=== PATIENT | female | born 1960 | race Caucasian/White ===

== ENCOUNTER 2020-05-20 09:41 | Emergency (ER) | payer MEDICARE ==
--- NOTE | 2020-05-20 10:37 | RADIOLOGY REPORT (SQ) ---
EXAM DESCRIPTION: CHEST SINGLE VIEW IMAGES COMPLETED DATE/TIME: 05/20/2020 10:27 am REASON FOR STUDY: shortness of breath COMPARISON: 12/06/2015. FINDINGS: One-view chest AP portable upright. Stable appearance. Pronounced emphysema in the upper lobes. Areas of scarring in the left upper lobe and scattered thro ughout the lower lobes. No suggestion of overt pneumothorax or superimposed infiltrate or mass. TECHNICAL DOCUMENTATION: JOB ID: [id number] Reading location - IP/workstation name: [email or web address]
[2020-05-20] MEDS ORDERED: NORMAL SALINE 1000 ML 1,000 ML IV ONE (11:08)
[2020-05-20 12:15] LABS: ABSOLUTE LYMPHOCYTES (AUTO) 0.7 10^3/uL (0.5-4.7); ABSOLUTE MONOCYTES (AUTO) 0.3 10^3/uL (0.1-1.4); ABSOLUTE NEUT (AUTO) 1.7 10^3/uL (1.7-8.2); BASOPHILS % (AUTO) 0.4 % (0-2); EOSINOPHILS % (AUTO) 0.1 % (0-6); HEMATOCRIT 39.2 % (36.0-47.0); HEMOGLOBIN 13.6 g/dL (12.0-15.5); LYMPHOCYTES % (AUTO) 26.4 % (13-45); MEAN CORPUSCULAR HEMOGLOBIN 30.3 pg (27.0-33.4); MEAN CORPUSCULAR HGB CONC 34.6 g/dL (32.0-36.0); MEAN CORPUSCULAR VOLUME 88 fl (80-97); MONOCYTES % (AUTO) 10.3 % (3-13); PLATELET COUNT 123 10^3/uL (150-450); RED BLOOD COUNT 4.48 10^6/uL (3.72-5.28); RED CELL DISTRIBUTION WIDTH 12.7 % (11.5-14.0); SEGMENTED NEUTROPHILS % (AUTO) 62.8 % (42-78); TOTAL CELLS COUNTED % (AUTO) 100 %; WHITE BLOOD COUNT 2.8 10^3/uL (4.0-10.5)
[2020-05-20 12:34] LABS: ALBUMIN 3.9 g/dL (3.5-5.0); ALKALINE PHOSPHATASE 60 U/L (38-126); ANION GAP 6 (5-19); ASPARTATE AMINO TRANSFERASE 43 U/L (14-36); BILIRUBIN,DIRECT 0.2 mg/dL (0.0-0.4); BILIRUBIN,TOTAL 0.5 mg/dL (0.2-1.3); BLOOD UREA NITROGEN 10 mg/dL (7-20); CALCIUM 8.6 mg/dL (8.4-10.2); CARBON DIOXIDE 30 mmol/L (22-30); CHLORIDE 100 mmol/L (98-107); GLUCOSE 92 mg/dL (75-110); POTASSIUM 3.7 mmol/L (3.6-5.0); TOTAL PROTEIN 6.3 g/dL (6.3-8.2)
--- NOTE | 2020-05-20 12:45 | ER Document Report ---
Entered by ESTRELLITA KIRKLAND SCRIBE 05/20/20 1057 Acting as scribe for:YOSSI CALDERON MD ED General - General Chief Complaint: Shortness Of Breath Stated Complaint: SHORT OF BREATH,COUGH,FEVER Mode of Arrival: Ambulatory Information source: Patient Notes: This 59 year old female patient with a history of COPD on 4L home O2 and bilateral lower lobe lung volume reduction x8 years ago presents to the ED today with complaints of "feeling bad" for the past x1 week. She reports intermittent fevers, productive cough with white sputum, wheezing, headache, loss of taste, headache, congestion, and nausea without emesis. She also mentions "waking up this morning feeling like my chest was on fire." She notes increased use of her nebulizer this past week and states that she did an albuterol treatment prior to arrival. Denies sore throat, known COVID exposure, or recent travel. TRAVEL OUTSIDE OF THE [place] IN LAST 30 DAYS: No - Related Data Allergies/Adverse Reactions: No Known Allergies Allergy (Verified 05/20/20 10:27) Past Medical History - General Information source: Patient - Social History Smoking Status: Former Smoker - quit 25 years ago Cigarette use (# per day): No Chew tobacco use (# tins/day): No Smoking Education Provided: No Frequency of alcohol use: None Drug Abuse: None Lives with: Spouse/Significant other Family History: Reviewed & Not Pertinent, CAD, Other - COPD Pulmonary Medical History: Reports: Hx COPD, Hx Pneumonia Past Surgical History: Reports: Hx Herniorrhaphy, Other - Bilateral lung volume reduction - Immunizations Hx Diphtheria, Pertussis, Tetanus Vaccination: Yes Review of Systems - Review of Systems Constitutional: See HPI, Chills, Fever EENT: See HPI, Nose congestion, Other - Loss of taste. denies: Throat pain Cardiovascular: No symptoms reported Respiratory: See HPI, Cough, Sputum, Wheezing Gastrointestinal: Nausea. denies: Vomiting Genitourinary: No symptoms reported Female Genitourinary: No symptoms reported Musculoskeletal: No symptoms reported Skin: No symptoms reported Hematologic/Lymphatic: No symptoms reported Neurological/Psychological: See HPI, Headaches -: Yes All other systems reviewed and negative Physical Exam - Vital signs Vitals: Temp Pulse Resp BP Pulse Ox 99.1 F 98 18 128/73 H 97 05/20/20 09:46 05/20/20 09:46 05/20/20 09:46 05/20/20 09:46 05/20/20 09:46 - General General appearance: Alert In distress: None - HEENT Head: Normocephalic, Atraumatic Eyes: Normal Extraocular movements intact: Yes Pupils: PERRL Pharynx: Erythema. No: Exudate Neck: Normal, Supple - Respiratory Respiratory status: No respiratory distress, Other - on 4L nasal cannula at baseline Chest status: Nontender Breath sounds: Wheezing - expiratory wheezing Chest palpation: Normal - Cardiovascular Rhythm: Regular Heart sounds: Normal auscultation Murmur: No - Abdominal Inspection: Normal Distension: No distension Bowel sounds: Normal Tenderness: Nontender - Abdomen soft Organomegaly: No organomegaly - Back Back: Normal, Nontender - Extremities General upper extremity: Normal inspection General lower extremity: Normal inspection. No: Edema - Neurological Neuro grossly intact: Yes Orientation: AAOx4 Lynch Coma Scale Eye Opening: Spontaneous Silvia Coma Scale Verbal: Oriented Lynch Coma Scale Motor: Obeys Commands Silvia Coma Scale Total: 15 - Psychological Associated symptoms: Normal affect, Normal mood - Skin Skin Temperature: Warm Skin Moisture: Dry Skin Color: Normal Course - Re-evaluation Re-evalutation: 05/20/20 15:36 Patient resting comfortably at this time patient has chronic nasal O2 at 4 L. Patient still receiving IV magnesium and has been given IV dexamethasone 6 mg. Patient is aware that she has COVID-19 positive and also rhinovirus our service present on the respiratory panel. Patient is not showing hypoxia or any extreme shortness of breath at this time. Patient has a low white blood cell count which is most likely due to her COVID-19. Patient is high risk and the fact that she has COPD. - Vital Signs Vital signs: Temp Pulse Resp BP Pulse Ox 99.1 F 98 18 128/73 H 97 05/20/20 09:46 05/20/20 09:46 05/20/20 09:46 05/20/20 09:46 05/20/20 09:46 - Laboratory Results Result Diagrams: 05/20/20 11:35 05/20/20 11:35 Laboratory Results Interpreted: 05/20/20 05/20/20 05/20/20 11:35 11:35 12:13 WBC 2.8 L Plt Count 123 L Sodium 135.7 L AST 43 H Entero/Rhino (PCR) DETECTED H SARS-CoV-2 (PCR) DETECTED H Labs- Entire Visit 05/20/20 05/20/20 05/20/20 11:35 11:35 11:35 WBC 2.8 L RBC 4.48 Hgb 13.6 Hct 39.2 MCV 88 MCH 30.3 MCHC 34.6 RDW 12.7 Plt Count 123 L Lymph % (Auto) 26.4 Whiteside % (Auto) 10.3 Eos % (Auto) 0.1 Baso % (Auto) 0.4 Absolute Neuts (auto) 1.7 Absolute Lymphs (auto) 0.7 Absolute Monos (auto) 0.3 Absolute Eos (auto) 0.0 Absolute Basos (auto) 0.0 Seg Neutrophils % 62.8 Sodium 135.7 L Potassium 3.7 Chloride 100 Carbon Dioxide 30 Anion Gap 6 BUN 10 Creatinine 0.80 Est GFR ( Amer) > 60 Est GFR (MDRD) Non-Af > 60 Glucose 92 Calcium 8.6 Total Bilirubin 0.5 Direct Bilirubin 0.2 Neonat Total Bilirubin Not Reportable Neonat Direct Bilirubin Not Reportable Neonat Indirect Bili Not Reportable AST 43 H ALT 26 Alkaline Phosphatase 60 Total Protein 6.3 Albumin 3.9 Vinicio Human Metapneumo PCR Cancelled Adenovirus (PCR) Cancelled B. pertussis DNA (PCR) Cancelled B.parapertussis DNA PCR Cancelled C. pneumoniae DNA (PCR) Cancelled Coronavirus OC43 (PCR) Cancelled Coronavirus HKU1 (PCR) Cancelled Coronavirus 229E (PCR) Cancelled Coronavirus NL63 (PCR) Cancelled Influenza A (H1) PCR Cancelled Influ A (H1N1/09) PCR Cancelled Influenza A (H3) PCR Cancelled Influenza Type A (PCR) Cancelled Influenza Type B (PCR) Cancelled M. pneumoniae (PCR) Cancelled Parainfluenza 1 (PCR) Cancelled Parainfluenza 2 (PCR) Cancelled Parainfluenza 3 (PCR) Cancelled Parainfluenza 4 (PCR) Cancelled RSV (PCR) Cancelled Entero/Rhino (PCR) Cancelled SARS-CoV-2 (PCR) Cancelled Group A Strep Rapid 05/20/20 05/20/20 11:35 12:13 WBC RBC Hgb Hct MCV MCH MCHC RDW Plt Count Lymph % (Auto) Whiteside % (Auto) Eos % (Auto) Baso % (Auto) Absolute Neuts (auto) Absolute Lymphs (auto) Absolute Monos (auto) Absolute Eos (auto) Absolute Basos (auto) Seg Neutrophils % Sodium Potassium Chloride Carbon Dioxide Anion Gap BUN Creatinine Est GFR ( Amer) Est GFR (MDRD) Non-Af Glucose Calcium Total Bilirubin Direct Bilirubin Neonat Total Bilirubin Neonat Direct Bilirubin Neonat Indirect Bili AST ALT Alkaline Phosphatase Total Protein Albumin Vinicio Human Metapneumo PCR NOT DETECTED Adenovirus (PCR) NOT DETECTED B. pertussis DNA (PCR) NOT DETECTED B.parapertussis DNA PCR NOT DETECTED C. pneumoniae DNA (PCR) NOT DETECTED Coronavirus OC43 (PCR) NOT DETECTED Coronavirus HKU1 (PCR) NOT DETECTED Coronavirus 229E (PCR) NOT DETECTED Coronavirus NL63 (PCR) NOT DETECTED Influenza A (H1) PCR NOT DETECTED Influ A (H1N1/09) PCR NOT DETECTED Influenza A (H3) PCR NOT DETECTED Influenza Type A (PCR) NOT DETECTED Influenza Type B (PCR) NOT DETECTED M. pneumoniae (PCR) NOT DETECTED Parainfluenza 1 (PCR) NOT DETECTED Parainfluenza 2 (PCR) NOT DETECTED Parainfluenza 3 (PCR) NOT DETECTED Parainfluenza 4 (PCR) NOT DETECTED RSV (PCR) NOT DETECTED Entero/Rhino (PCR) DETECTED H SARS-CoV-2 (PCR) DETECTED H Group A Strep Rapid NEGATIVE No acute labs other than patient has COVID-19 and also rhinovirus positive. Patient has chronic COPD and has wheezing. 05/20/20 15:38 Critical Laboratory Results Reviewed: No Critical Results - Radiology Results Radiology Results Interpreted: 05/20/20 15:40 Chest x-ray today shows pronounced emphysema in the upper lobes and scattered scarring in the lower lobes patient has no evidence for infiltrate or mass. Critical Radiology Results Reviewed: No Critical Results Discharge - Discharge Clinical Impression: COVID-19 virus RNA test result positive at limit of detection, Acute bronchospasm, COPD exacerbation Condition: Stable Disposition: HOME, SELF-CARE Additional Instructions: Chronic Obstructive Lung Disease You have chronic obstructive lung disease (COPD). The symptoms come from emphysema (damage to small airways, with trapping of air in large sacks in the lung) and chronic bronchitis (repeated infection and damage to larger airways). The cause is almost always cigarette smoking, although dust exposure, asthma, and infections contribute. You should avoid fumes, dust, and smoke (especially tobacco smoke). Your condition will flare from time to time. There is no cure, but the symptoms can be treated. Bronchodilators (asthma medicine) are often helpful. Antibiotics help when infection is present. When shortness of breath is severe, we may prescribe cortisone medication. If medicine doesn't help enough, we can arrange for you to have an oxygen tank at home. Notify your doctor at once if sputum becomes thick, foul, or bloody, if you develop a fever or chest pain, or if your shortness of breath worsens. You have COVID-19/COPD that is chronic with flareup with bronchospasms due to your COVID-19 virus you also have the rhinovirus that is positive also which may be also contributing to your bronchospasm. Continue your usual medicines however in addition I did prescribe you a Medrol Dosepak. Also I would like for you to begin vitamin C 1000 mg twice a day, vitamin D3 5,000 international units daily. Also consider zinc 50 mg tablets once a day. Follow-up with your primary care provider. Prescriptions: Methylprednisolone [Medrol Dosepack (4 mg/Tab) 21 Tab/Dosepak] 4 mg PO ASDIR PRN #21 [email or web address] PRN Reason: I personally performed the services described in the documentation, reviewed and edited the documentation which was dictated to the scribe in my presence, and it accurately records my words and actions.
[2020-05-20] MEDS ORDERED: DEXAMETHASONE SOD PHOS INJ 10 MG/1 ML VIAL IV ONE (13:21)
[2020-05-20] MEDS: MAGNESIUM SULFATE/D5W 1 GM/100 ML RTUPB IV SCH ×2 (14:22→15:40)
[2020-05-20 16:17] VITALS: BP 132/80
== END 2020-05-20 16:17 | disposition home or self-care (01) ==
LOC: ER 09:41
DX: U07.1 COVID-19 (principal); J43.9 Emphysema, unspecified; B34.8 Other viral infections of unspecified site; Z99.81 Dependence on supplemental oxygen; Z87.891 Personal history of nicotine dependence; Z87.01 Personal history of pneumonia (recurrent)
CPT/HCPCS: 99284; 96361; 96375; 96365; 96366; 36415; 87070; 87880; 85025; 0202U; 80053; 71045; J3475; J7030; J1100; C9803